=== PATIENT | female | born 1960 ===

== ENCOUNTER → 2017-10-25 | Outpatient (CLI) | payer BC | END | disposition home or self-care (01) | LOC: KCIC MAMMO 15:48 | DX: Z12.31 Encounter for screening mammogram for malignant neoplasm of breast (principal) | CPT/HCPCS: 77067 ==

== ENCOUNTER → 2019-10-30 | Outpatient (CLI) | payer BC ==
[2014-11-27 10:12] VITALS: BP 146/82
[~2019-10-30] MED LIST: ALBU8.5H6 INH; CHOL10003 PO; GUAI-108 PO; HYDR-2761; LISI1TAB19 PO; LORA10TA3 PO; METF500T11 PO; VITA1TAB19 PO; ZOLPIDEM 5 MG TABLET. PO ONE
--- NOTE | 2019-10-31 18:58 | SLEEP ---
DATE OF STUDY: 10/30/2019 SLEEP STUDY ATTENDING PHYSICIAN: Lela Millard D.O. REFERRING PHYSICIAN: Zeferino Gabriel M.D. The patient is 59 years old who weighs 185 pounds with a BMI of 34. The patient had a history of sleep apnea. The patient did lost 10 pounds. The patient was referred back for another split night study. During the night study, the patient spent 432 minutes in bed and slept for 354 minutes with a sleep efficiency of 82%. Sleep latency was 27 minutes with a REM latency of 197 minutes. Sleep architecture showed increased stage 1 and stage 2 sleep, normal slow wave, and reduced REM sleep. During the initial diagnostic portion of the study, the patient slept for 90 minutes. The patient had 6 obstructive apneas, 1 mixed apnea, no central apneas, and 31 hypopneas. The patient's AHI was 25 per hour with a supine AHI of 7 per hour. REM sleep was not seen during the diagnostic portion of the study. EKG monitoring revealed no arrhythmias. The patient's mean heart rate was 87 beats per minute. PLMS were seen at the index of 44 per hour and 11 per hour caused EEG arousals. Nocturnal oximetry study revealed a mean oxygen saturation of 94% with the lowest of 84%, 2.1 minutes were spent in oxygen saturation of less than 89%. The patient met the criteria for CPAP initiation. It was started at 5 cm of water and titrated up to 13 cm of water. At the final pressure, the patient slept for 48 minutes. The patient had a supine sleep, but no REM sleep. The patient's AHI was reduced to 0 per hour and oxygen saturation remained above 94%. The patient used small size full face mask. IMPRESSION: 1. Moderate obstructive sleep apnea. Absence of REM sleep can underestimate the severity of sleep apnea. 2. No clinically significant nocturnal hypoxia. 3. Moderate to severe periodic limb movements. RECOMMENDATIONS: 1. CPAP at 13 cm water completely eliminated the patient's sleep apnea and should be used on a nightly basis. 2. Follow up in 4-6 weeks to assess compliance with CPAP and to document clinical improvement. 3. Weight loss is advised. 4. Avoid [employer] depressants. 5. Cautioned regarding driving until symptoms of sleep apnea resolve with the use of CPAP. 6. The patient should also be further evaluated for symptoms of restless legs during the day. TAMARA DAIGLE MD DR: DURAN/marvin JOB#: [id number] / [id number] ZEFERINO Aparicio MD, TINA DO
== END | disposition home or self-care (01) ==
LOC: SLPLAB 18:52
PROVIDERS: ATTEND Internal Medicine Pulmonary Disease
DX: G47.33 Obstructive sleep apnea (adult) (pediatric) (principal); Z68.34 Body mass index [BMI] 34.0-34.9, adult
CPT/HCPCS: 95810